=== PATIENT | female | born 1990 | race Caucasian/White ===

== ENCOUNTER 2023-05-18 13:37 | Emergency (ER) | payer OTHER, BC, SELFPAY ==
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
[2023-05-18 13:49] VITALS: BP 115/64; PULSE 92; RESP 18; TEMP 36.4; O2SAT 99
[2023-05-18] MEDS: ACETAMINOPHEN 500 MG TABLET 1000 MG PO (16:48)
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
== END 2023-05-18 17:21 | disposition home or self-care (01) ==
PROVIDERS: Emergency Provider Physician Assistant
DX: S16.1XXA Strain of muscle, fascia and tendon at neck level, initial encounter (principal); V89.2XXA Person injured in unspecified motor-vehicle accident, traffic, initial encounter
CPT/HCPCS: 72125; 73030; 81025; 99284; A9270